=== PATIENT | female | born 1995 ===

== ENCOUNTER 2025-02-23 13:30 | Inpatient (IN) | payer OTHER ==
[~2025-02-23] VITALS: Ht 152.4 cm; Wt 79.4 kg
[2025-02-27 23:44] VITALS: BP 132/64; O2SAT 97
[2025-02-28] MEDS ORDERED: RINGERS SOLUTION,LACTATED 1,000 ML IV SCH ×2 (01:15→17:45)
[2025-02-28] MEDS ORDERED: AMPICILLIN SODIUM 2,000 MG VIAL IV ONE (01:15)
[2025-02-28] MEDS ORDERED: PRENATAL DHA200 MG PO (01:39)
[2025-02-28 01:55] LABS: URINE APPEARANCE Cloudy; URINE BILIRRUBIN Negative (NEGATIVE); URINE BLOOD Small; URINE COLOR Yellow; URINE GLUCOSE Negative (NEGATIVE); URINE KETONE Negative (NEGATIVE); URINE LEUKOCYTE Large; URINE NITRATE Negative; URINE PROTEIN 30 (NEGATIVE); URINE UROBILINOGEN 0.2 E.U./dl
[2025-02-28 01:55] LABS: BASO % 0.3 % (0.1-1.2); EOS % 1.2 % (0.7-7.0); HEMATOCRIT 31.2 % (34.1-44.9); HEMOGLOBIN 10.9 g/dL (11.2-15.7); LYMPH # 2.19 (1.18-3.74); LYMPH % 13.3 % (19.3-53.1); MEAN CORPUSCULAR HEMOGLOBIN 29.9 pg (25.6-32.2); MONO # 1.07 (0.24-0.82); MONO % 6.5 % (4.7-12.5); NEUT % 76.1 % (34.0-71.1); PLATELET COUNT 206 K/uL (163-369); RED BLOOD COUNT 3.64 M/uL (3.93-5.22); RED CELL DISTRIBUTION WIDTH 13.9 % (11.6-14.4)
[2025-02-28 01:58] LABS: URINE CAST 1.62 uL (0.0-1.40); URINE EPITHELIAL CELLS 29.7 uL (0.0-38.8); URINE RBC 94.1 uL (0.0-20.8); URINE WBC 272.6 uL (0.0-23.2)
[2025-02-28 02:14] LABS: INR 0.95; PARTIAL THROMBOPLASTIN TIME 25.9 SECONDS (22.0-34.0); PROTHROMBIN TIME 10.4 SECONDS (9.0-11.5)
[2025-02-28 02:25] LABS: URINE BACTERIA > 9821.5 uL (0.0-1933)
[2025-02-28 03:50] VITALS: BP 134/80
[2025-02-28] MEDS ORDERED: AMPICILLIN SODIUM 1,000 MG VIAL IV SCH (05:00)
[2025-02-28 07:55] VITALS: BP 120/61
[2025-02-28 11:07] VITALS: BP 135/83
[2025-02-28] MEDS ORDERED: OXYTOCIN 500 ML IV ONE (12:15)
[2025-02-28] MEDS ORDERED: MORPHINE SULFATE 4 MG/ML VIAL IV STA (13:06)
[2025-02-28 13:08] VITALS: BP 132/77
[2025-02-28 15:02] VITALS: BP 118/77
[2025-02-28] MEDS ORDERED: ERYTHROMYCIN BASE OPHT 1GM EACH TUBE OP ONE (16:30)
[2025-02-28] MEDS ORDERED: OXYTOCIN 10 UNITS/ML VIAL IV ONE (16:30)
[2025-02-28] MEDS ORDERED: KETOROLAC TROMETHAMINE 60 MG VIAL IM STA (17:35)
[2025-02-28] MEDS ORDERED: CHLORHEXIDINE GLUCONATE 120 ML BOTTLE TOP SCH (17:45)
[2025-02-28] MEDS ORDERED: OXYTOCIN 1,000 ML IV SCH (17:45)
[2025-02-28] MEDS ORDERED: MORPHINE SULFATE 4 MG/ML CARTRIDGE IV PRN (17:45)
[2025-02-28] MEDS ORDERED: MORPHINE SULFATE 4 MG/ML VIAL IV ONE (18:25)
[2025-02-28 20:03] VITALS: BP 127/77
[2025-02-28 20:10] LABS: BASO % 0.3 % (0.1-1.2); EOS # 0.02 (0.04-0.54); EOS % 0.1 % (0.7-7.0); HEMATOCRIT 32.3 % (34.1-44.9); HEMOGLOBIN 11.1 g/dL (11.2-15.7); LYMPH # 1.22 (1.18-3.74); LYMPH % 6.4 % (19.3-53.1); MONO # 1.22 (0.24-0.82); MONO % 6.4 % (4.7-12.5); NEUT # 16.11 (1.56-6.13); NEUT % 85.2 % (34.0-71.1); PLATELET COUNT 211 K/uL (163-369); RED BLOOD COUNT 3.83 M/uL (3.93-5.22); RED CELL DISTRIBUTION WIDTH 13.8 % (11.6-14.4)
[2025-03-01 01:13] VITALS: BP 101/58
[2025-03-01 08:05] VITALS: BP 91/53
[2025-03-01] MEDS ORDERED: ACETAMINOPHEN WITH CODEINE 1 UDTAB TABLET PO PRN (09:00)
[2025-03-01 15:56] VITALS: BP 125/81
[2025-03-02 01:15] VITALS: BP 106/71
[2025-03-02 08:18] VITALS: BP 114/74; O2SAT 99
[2025-03-02 12:29] VITALS: BP 124/74
[2025-03-03 00:45] VITALS: BP 112/78
[2025-03-03] MEDS ORDERED: IBUPROFEN800 MG PO (07:30)
[2025-03-03 08:00] VITALS: BP 122/80
== END 2025-03-03 13:20 | disposition home or self-care (01) | DRG 788 ==
LOC: OB/GYN 02-28 00:29 → LDR 02-28 00:29 → OB/GYN 02-28 17:52
PROVIDERS: Obstetrics & Gynecology; ADMIT Specialist; ATTEND Specialist
PROC: 4A1HXCZ Monitoring of Products of Conception, Cardiac Rate, External Approach (ICD-10-PCS; 2025-02-28)
PROC: 10D00Z1 Extraction of Products of Conception, Low, Open Approach (ICD-10-PCS; principal; 2025-02-28 16:00)
DX: O62.0 Primary inadequate contractions (principal); O64.0XX0 Obstructed labor due to incomplete rotation of fetal head, not applicable or unspecified; Z3A.39 39 weeks gestation of pregnancy; Z37.0 Single live birth